=== PATIENT | male | born 1970 | race Caucasian/White ===

== ENCOUNTER 2018-07-21 16:57 | Emergency (ER) | payer BC ==
[~2018-07-21] VITALS: Ht 182.9 cm; Wt 113.4 kg
[2018-07-21] MEDS ORDERED: CRESTOR10 MG PO (17:35)
[2018-07-21] MEDS ORDERED: AMBIEN 5 MG TABL5 M1 PO (17:35)
[2018-07-21] MEDS ORDERED: METFORMIN HCL500 MG PO (17:35)
[2018-07-21] MEDS ORDERED: ASPIR 8181 MG PO (17:36)
[2018-07-21] MEDS ORDERED: FISH OIL 1,001000 M2 PO (17:36)
[2018-07-21 17:54] LABS: URINE BILIRUBIN NEGATIVE (Negative); URINE BLOOD NEGATIVE (Negative); URINE CLARITY CLEAR; URINE COLOR YELLOW; URINE GLUCOSE-RANDOM* NEGATIVE (Negative); URINE KETONES NEGATIVE (Negative); URINE LEUKOCYTES-REFLEX NEGATIVE (Negative); URINE NITRITE-REFLEX NEGATIVE (Negative); URINE PROTEIN (DIPSTICK) NEGATIVE (Negative); URINE SPECIFIC GRAVITY 1.015 (1.005-1.035); URINE UROBILINOGEN 0.2 E.U./dl (0.2-1.0)
[2018-07-21 18:14] LABS: BASOPHILS 0.4 % (0.0-2.0); EOSINOPHILS 1.9 % (0.0-3.0); HEMATOCRIT 42.4 % (42.0-52.0); HEMOGLOBIN 14.6 gm/dL (14.0-18.0); LYMPHOCYTES 16.9 % (24.0-44.0); MCH 30.6 pg (26.0-34.0); MCHC 34.4 g/dL (28.0-37.0); MONOCYTES 8.2 % (1.0-8.0); PLATELET COUNT 224 thou/uL (150-400); POLYS 72.6 % (36.0-66.0); RBC 4.76 mil/uL (4.50-6.00); RDW 13.1 % (10.5-14.5); WBC 9.7 thou/uL (4.0-11.0)
[2018-07-21 18:21] LABS: CALCIUM 9.2 mg/dL (8.5-10.1); CREATININE 1.3 mg/dL (0.7-1.3)
[2018-07-21 18:24] LABS: ALBUMIN 3.8 g/dL (3.4-5.0); TOTAL BILIRUBIN 0.3 mg/dL (<0.1-1.0); TOTAL PROTEIN 7.3 g/dL (6.4-8.2)
[2018-07-21] MEDS ORDERED: TORADOL 10 MG T10 MG PO (18:56)
[2018-07-21] MEDS ORDERED: FLOMAX0.4 MG PO (18:56)
[2018-07-21 19:12] VITALS: BP 136/77
== END 2018-07-21 19:13 | disposition home or self-care (01) ==
LOC: ER 16:57
PROVIDERS: Emergency Medicine
DX: R10.9 Unspecified abdominal pain (principal); Z87.442 Personal history of urinary calculi; E78.00 Pure hypercholesterolemia, unspecified